=== PATIENT | male | born 1985 | race Hispanic/Latino ===

== ENCOUNTER 2018-12-08 15:51 | Emergency (ER) | payer OTHER ==
[2018-12-08 16:38] LABS: BASOPHILS % (AUTO) 0.7 % (0.0-5.0); EOSINOPHILS % (AUTO) 2.2 % (0.0-8.0); HEMATOCRIT 48.3 % (42-54); LYMPHOCYTES % (AUTO) 21.9 % (21.0-51.0); MEAN CORPUSCULAR HEMOGLOBIN 32.2 pg (27.0-33.0); MEAN CORPUSCULAR HGB CONC 33.5 g/dL (32.0-36.0); MEAN CORPUSCULAR VOLUME 96.2 fL (79-99); MONOCYTES % (AUTO) 7.3 % (3.0-13.0); NEUTROPHILS % (AUTO) 67.9 % (40.0-77.0); PLATELET COUNT (AUTO) 229 K/uL (130-400); RED BLOOD CELL COUNT(AUTO) 5.02 MIL/uL (4.50-6.20); RED CELL DISTRIBUTION WIDTH 12.5 % (11.0-15.5); WHITE BLOOD COUNT (AUTO) 7.7 K/uL (4.8-10.8)
[2018-12-08 16:48] LABS: CARBON DIOXIDE 31 mmol/L (21-32); CHLORIDE 103 mmol/L (101-111); CREATININE 0.8 mg/dL (0.5-1.5); GLOMERULAR FILTR. RATE CALC 117 mL/min (>60); GLUCOSE,RANDOM 97 mg/dL (70-105); POTASSIUM 4.2 mmol/L (3.5-5.1); SODIUM SERUM 137 mmol/L (136-145); UREA NITROGEN, BLOOD 10 mg/dL (7-18)
[2018-12-08 16:55] LABS: ALANINE AMINOTRANSFERASE 91 U/L (12-78); ALBUMIN 3.5 g/dL (3.5-5.0); ASPARTATE AMINOTRANSFERASE 48 U/L (10-37); BILIRUBIN,DIRECT 0.1 mg/dL (0.0-0.3); BILIRUBIN,TOTAL 0.5 mg/dL (0.2-1.0); CREATINE KINASE, TOTAL 193 U/L (21-232); TOTAL PROTEIN, SERUM 7.4 g/dL (6.0-8.3)
[2018-12-08 17:16] LABS: ACETAMINOPHEN < 1 mcg/mL (10-29); SALICYLATE < 2.8 mg/dL (2.8-20.0)
[2018-12-08 17:23] LABS: AMPHET/METH SCREEN,URINE POSITIVE (NEGATIVE); BARBITURATE SCREEN, URINE NEGATIVE (NEGATIVE); BENZODIAZEPINES SCREEN,URINE POSITIVE (NEGATIVE); CANNABINOID SCREEN,URINE POSITIVE (NEGATIVE); COCAINE SCREEN,URINE NEGATIVE (NEGATIVE); OPIATE SCREEN,URINE NEGATIVE (NEGATIVE); PHENCYCLIDINE SCREEN,URINE NEGATIVE (NEGATIVE)
== END 2018-12-08 18:35 | disposition home or self-care (01) ==
LOC: EDH 15:51
DX: F19.10 Other psychoactive substance abuse, uncomplicated (principal); R41.82 Altered mental status, unspecified; F41.9 Anxiety disorder, unspecified; F12.10 Cannabis abuse, uncomplicated
CPT/HCPCS: 36415; 70450; 80048; 80076; 80305; 82550; 85025; 93005; 99284; G0480; G0481

== ENCOUNTER 2021-01-23 21:26 | Emergency (ER) | payer OTHER ==
[2021-01-23 22:03] LABS: BASOPHILS % (AUTO) 0.6 % (0.0-5.0); LYMPHOCYTES % (AUTO) 26.8 % (21.0-51.0); MEAN CORPUSCULAR HEMOGLOBIN 30.9 pg (27.0-33.0); MEAN CORPUSCULAR HGB CONC 31.1 g/dL (32.0-36.0); MEAN CORPUSCULAR VOLUME 99.3 fL (79-99); MONOCYTES % (AUTO) 8.1 % (3.0-13.0); NUCLEATED RED BLOOD CELLS 0.2 % (0.0-0.19); PLATELET COUNT (AUTO) 268 K/uL (130-400); RED BLOOD CELL COUNT(AUTO) 4.53 MIL/uL (4.50-6.20); RED CELL DISTRIBUTION WIDTH 13.4 % (11.0-15.5); WHITE BLOOD COUNT (AUTO) 12.7 K/uL (4.8-10.8)
[2021-01-23 22:16] LABS: INR 1.23 (0.85-1.15); PROTHROMBIN TIME 13.2 SEC (9.6-11.6)
[2021-01-23 22:17] LABS: CREATININE 1.2 mg/dL (0.5-1.5); PARTIAL THROMBOPLASTIN TIME 24.6 SEC (26.3-35.5); POTASSIUM 3.5 mmol/L (3.5-5.1)
[2021-01-23 22:29] LABS: ALBUMIN 3.3 g/dL (3.5-5.0); BILIRUBIN,TOTAL 0.8 mg/dL (0.2-1.0)
[2021-01-23 22:31] LABS: ABG BASE EXCESS -0.1 mmol/L (-2.0-3.0); ABG HCO3 24.6 mmol/L (21.0-28.0); ABG OXYGEN SATURATION 94.7 % (95.0-99.0); ABG PCO2 40 mmHg (35-48)
[2021-01-23] MEDS ORDERED: ALBUTEROL SULFATE 0.083% 2.5 MG/3 ML INH IH ONE (22:35)
[2021-01-23] MEDS ORDERED: IOHEXOL 350 MG/ML 100ML INFUS..BTL IV ONE (23:22)
[2021-01-23] MEDS ORDERED: FUROSEMIDE 10 MG/ML 4ML VIAL ONE (23:56)
[2021-01-24 00:16] LABS: APPEARANCE,URINE Clear (CLEAR); BILIRUBIN,URINE Negative (NEGATIVE); COLOR,URINE Dark Yellow (YELLOW); GLUCOSE, URINE (UA) Negative (NEGATIVE); KETONES,URINE Negative (NEGATIVE); LEUKOCYTE ESTERASE ,URINE Negative (NEGATIVE); NITRATE,URINE Negative (NEGATIVE); OCCULT BLOOD,URINE Negative (NEGATIVE); PROTEIN,URINE POS 2+ mg/dL (NEGATIVE)
[2021-01-24 01:00] LABS: AMPHET/METH SCREEN,URINE POSITIVE (NEGATIVE); BARBITURATE SCREEN, URINE NEGATIVE (NEGATIVE); BENZODIAZEPINES SCREEN,URINE POSITIVE (NEGATIVE); CANNABINOID SCREEN,URINE POSITIVE (NEGATIVE); COCAINE SCREEN,URINE NEGATIVE (NEGATIVE); OPIATE SCREEN,URINE NEGATIVE (NEGATIVE); PHENCYCLIDINE SCREEN,URINE NEGATIVE (NEGATIVE)
[2021-01-24] MEDS ORDERED: CEFTRIAXONE SODIUM 1 GM ONE (02:19)
[2021-01-24] MEDS ORDERED: AZITHROMYCIN 250 MG TABLET PO ONE (02:19)
== END 2021-01-24 02:29 | disposition left against medical advice (07) ==
LOC: EDH 21:26
DX: J18.9 Pneumonia, unspecified organism (principal); R09.02 Hypoxemia; R60.0 Localized edema; R06.00 Dyspnea, unspecified; R00.0 Tachycardia, unspecified; Z20.822 Contact with and (suspected) exposure to COVID-19; F41.9 Anxiety disorder, unspecified; Z72.0 Tobacco use
CPT/HCPCS: 36415; 36600; 71045; 71275; 80053; 80305; 81003; 82803; 83605; 83880; 84484; 85025; 85378; 85610; 85730; 87040 ×2; 87426; 87804 ×2; 93005; 94640; 96374; 96375; 99285; J0696; J1940; Q9967; U0003

== ENCOUNTER 2021-01-28 00:43 | Inpatient (IN) | payer SELFPAY ==
[2021-01-28 01:40] LABS: BASOPHILS % (AUTO) 0.6 % (0.0-5.0); EOSINOPHILS % (AUTO) 0.8 % (0.0-8.0); HEMATOCRIT 45.2 % (42-54); LYMPHOCYTES % (AUTO) 25.4 % (21.0-51.0); MEAN CORPUSCULAR HEMOGLOBIN 31.9 pg (27.0-33.0); MEAN CORPUSCULAR HGB CONC 32.3 g/dL (32.0-36.0); MEAN CORPUSCULAR VOLUME 98.9 fL (79-99); MONOCYTES % (AUTO) 6.1 % (3.0-13.0); NEUTROPHILS % (AUTO) 66.5 % (40.0-77.0); PLATELET COUNT (AUTO) 281 K/uL (130-400); RED BLOOD CELL COUNT(AUTO) 4.57 MIL/uL (4.50-6.20); RED CELL DISTRIBUTION WIDTH 13.8 % (11.0-15.5); WHITE BLOOD COUNT (AUTO) 13.1 K/uL (4.8-10.8)
[2021-01-28 01:45] LABS: CREATININE 1.3 mg/dL (0.5-1.5); INR 1.21 (0.85-1.15); POTASSIUM 3.8 mmol/L (3.5-5.1)
[2021-01-28 01:47] LABS: PARTIAL THROMBOPLASTIN TIME 25.4 SEC (26.3-35.5)
[2021-01-28 01:49] LABS: ALBUMIN 3.2 g/dL (3.5-5.0); BILIRUBIN,TOTAL 1.1 mg/dL (0.2-1.0); TOTAL PROTEIN, SERUM 6.9 g/dL (6.0-8.3)
[2021-01-28 01:56] LABS: B-TYPE NATRIURETIC PEPTIDE 453 pg/mL (0-100)
[2021-01-28 01:59] LABS: ABG BASE EXCESS -0.1 mmol/L (-2.0-3.0); ABG HCO3 24.9 mmol/L (21.0-28.0); ABG OXYGEN SATURATION 90.5 % (95.0-99.0); ABG PCO2 42 mmHg (35-48)
[2021-01-28 02:10] LABS: APPEARANCE,URINE Clear (CLEAR); BILIRUBIN,URINE Small (NEGATIVE); COLOR,URINE Dark Yellow (YELLOW); GLUCOSE, URINE (UA) Negative (NEGATIVE); KETONES,URINE Negative (NEGATIVE); LEUKOCYTE ESTERASE ,URINE Negative (NEGATIVE); NITRATE,URINE Negative (NEGATIVE); OCCULT BLOOD,URINE Negative (NEGATIVE); PROTEIN,URINE POS 2+ mg/dL (NEGATIVE)
[2021-01-28 02:17] LABS: AMPHET/METH SCREEN,URINE POSITIVE (NEGATIVE); BARBITURATE SCREEN, URINE NEGATIVE (NEGATIVE); BENZODIAZEPINES SCREEN,URINE POSITIVE (NEGATIVE); CANNABINOID SCREEN,URINE POSITIVE (NEGATIVE); COCAINE SCREEN,URINE POSITIVE (NEGATIVE); OPIATE SCREEN,URINE NEGATIVE (NEGATIVE); PHENCYCLIDINE SCREEN,URINE NEGATIVE (NEGATIVE)
[2021-01-28] MEDS ORDERED: FUROSEMIDE 10 MG/ML 4ML VIAL ONE (02:27)
[2021-01-28 02:37] LABS: BACTERIA,URINE Few /HPF (None Seen); MUCUS,URINE Moderate LPF (None Seen); RBC,URINE 0-1 /HPF (0-1)
[2021-01-28 04:08] LABS: HEMOGLOBIN A1C 6.3 % (4.0-6.0)
[2021-01-28] MEDS ORDERED: METOPROLOL TARTRATE 1 MG/ML 5ML VIAL IV ONE (05:36)
[2021-01-28 05:39] LABS: BASOPHILS % (AUTO) 0.6 % (0.0-5.0); EOSINOPHILS % (AUTO) 0.8 % (0.0-8.0); HEMATOCRIT 44.2 % (42-54); LYMPHOCYTES % (AUTO) 26.6 % (21.0-51.0); MEAN CORPUSCULAR VOLUME 96.9 fL (79-99); MONOCYTES % (AUTO) 6.6 % (3.0-13.0); NEUTROPHILS % (AUTO) 64.8 % (40.0-77.0); PLATELET COUNT (AUTO) 279 K/uL (130-400); RED BLOOD CELL COUNT(AUTO) 4.56 MIL/uL (4.50-6.20); RED CELL DISTRIBUTION WIDTH 13.6 % (11.0-15.5); WHITE BLOOD COUNT (AUTO) 12.1 K/uL (4.8-10.8)
[2021-01-28 05:52] LABS: INR 1.21 (0.85-1.15)
[2021-01-28 05:54] LABS: PARTIAL THROMBOPLASTIN TIME 25.3 SEC (26.3-35.5)
[2021-01-28 06:06] LABS: ALBUMIN 3.3 g/dL (3.5-5.0); BILIRUBIN,TOTAL 1.1 mg/dL (0.2-1.0); CREATININE 1.2 mg/dL (0.5-1.5); POTASSIUM 3.3 mmol/L (3.5-5.1)
[2021-01-28] MEDS ORDERED: CEFTRIAXONE SODIUM 1 GM IVP SCH (07:00)
[2021-01-28] MEDS ORDERED: FUROSEMIDE 10 MG/ML 4ML VIAL IVP SCH (09:00)
[2021-01-28] MEDS ORDERED: FAMOTIDINE/PF 20 MG/2 ML VIAL IV SCH (09:00)
[2021-01-28] MEDS ORDERED: ENOXAPARIN SODIUM 40 MG/0.4 ML SYRINGE SQ SCH (09:00)
== END 2021-01-28 09:31 | disposition left against medical advice (07) | DRG 204 ==
LOC: EDH 00:43 → EDHIP 00:44
PROVIDERS: ADMIT Internal Medicine; ATTEND Internal Medicine
DX: R06.00 Dyspnea, unspecified (principal); F41.9 Anxiety disorder, unspecified; Z53.29 Procedure and treatment not carried out because of patient's decision for other reasons; I50.9 Heart failure, unspecified; F17.200 Nicotine dependence, unspecified, uncomplicated; F12.10 Cannabis abuse, uncomplicated; F14.10 Cocaine abuse, uncomplicated; F15.10 Other stimulant abuse, uncomplicated
CPT/HCPCS: 36415; 36600; 71045; 80053; 80305; 81001; 82550; 82803; 83036; 83605; 83690; 83880; 84145; 84484; 85025; 85610; 85730; 87040; 93005; G0378; J1940; J3490

== ENCOUNTER 2021-02-01 13:10 | Inpatient (IN) | payer OTHER ==
[~2021-02-01] VITALS: Ht 167.6 cm; Wt 182.9 kg
[2021-02-01 14:07] LABS: BASOPHILS % (AUTO) 0.6 % (0.0-5.0); LYMPHOCYTES % (AUTO) 25.9 % (21.0-51.0); MEAN CORPUSCULAR HGB CONC 31.5 g/dL (32.0-36.0); MEAN CORPUSCULAR VOLUME 98.5 fL (79-99); MONOCYTES % (AUTO) 7.4 % (3.0-13.0); NEUTROPHILS % (AUTO) 64.6 % (40.0-77.0); PLATELET COUNT (AUTO) 301 K/uL (130-400); RED BLOOD CELL COUNT(AUTO) 4.77 MIL/uL (4.50-6.20); RED CELL DISTRIBUTION WIDTH 13.7 % (11.0-15.5); WHITE BLOOD COUNT (AUTO) 11.8 K/uL (4.8-10.8)
[2021-02-01 14:21] LABS: INR 1.32 (0.85-1.15)
[2021-02-01] MEDS ORDERED: SODIUM CHLORIDE 0.9% 50 ML IV ONE (14:21)
[2021-02-01] MEDS ORDERED: FUROSEMIDE 10 MG/ML 4ML VIAL ONE ×2 (14:21→21:49)
[2021-02-01] MEDS ORDERED: ASPIRIN 325 MG TABLET ONE (14:21)
[2021-02-01] MEDS ORDERED: CEFTRIAXONE SODIUM 1 GM ONE (14:21)
[2021-02-01 14:23] LABS: PARTIAL THROMBOPLASTIN TIME 25.6 SEC (26.3-35.5)
[2021-02-01 14:30] LABS: ALBUMIN 3.2 g/dL (3.5-5.0); BILIRUBIN,TOTAL 1.1 mg/dL (0.2-1.0); CREATININE 1.2 mg/dL (0.5-1.5); POTASSIUM 3.9 mmol/L (3.5-5.1); TOTAL PROTEIN, SERUM 6.8 g/dL (6.0-8.3)
[2021-02-01 14:39] LABS: B-TYPE NATRIURETIC PEPTIDE 636 pg/mL (0-100)
[2021-02-01 16:52] LABS: APPEARANCE,URINE Clear (CLEAR); BILIRUBIN,URINE Small (NEGATIVE); COLOR,URINE Dark Yellow (YELLOW); GLUCOSE, URINE (UA) Negative (NEGATIVE); KETONES,URINE Negative (NEGATIVE); LEUKOCYTE ESTERASE ,URINE Negative (NEGATIVE); NITRATE,URINE Negative (NEGATIVE); OCCULT BLOOD,URINE Negative (NEGATIVE); PROTEIN,URINE POS 2+ mg/dL (NEGATIVE)
[2021-02-01 17:02] LABS: BACTERIA,URINE Rare /HPF (None Seen); COARSE GRANULAR CASTS,URINE 0-2 /LPF (None Seen); MUCUS,URINE Rare LPF (None Seen); RBC,URINE 0-1 /HPF (0-1); SQUAMOUS EPITHELIAL CELL,UR Rare /HPF (0-2); WBC,URINE 0-1 /HPF (0-1)
[2021-02-01 17:09] LABS: AMPHET/METH SCREEN,URINE POSITIVE (NEGATIVE); BARBITURATE SCREEN, URINE NEGATIVE (NEGATIVE); BENZODIAZEPINES SCREEN,URINE POSITIVE (NEGATIVE); CANNABINOID SCREEN,URINE POSITIVE (NEGATIVE); COCAINE SCREEN,URINE NEGATIVE (NEGATIVE); OPIATE SCREEN,URINE NEGATIVE (NEGATIVE); PHENCYCLIDINE SCREEN,URINE NEGATIVE (NEGATIVE)
[2021-02-01 17:10] LABS: ABG BASE EXCESS 1.7 mmol/L (-2.0-3.0); ABG HCO3 27.4 mmol/L (21.0-28.0); ABG OXYGEN SATURATION 93.1 % (95.0-99.0); ABG PCO2 47 mmHg (35-48)
[2021-02-01] MEDS: FUROSEMIDE 10 MG/ML 4ML VIAL IV SCH (18:00)
[2021-02-01 22:40] VITALS: BP 138/77
[2021-02-01 23:27] VITALS: BP 144/99
[2021-02-02] MEDS ORDERED: CHLORDIAZEPOXIDE HCL 25 MG CAP PO PRN (02:30)
[2021-02-02] MEDS ORDERED: PHARMACY COMMUNICATION MISC PRN (02:30)
[2021-02-02] MEDS ORDERED: LORAZEPAM 2 MG/ML 1 ML VIAL IVP PRN ×2 (02:30→10:30)
[2021-02-02 03:31] VITALS: BP 140/119
[2021-02-02] MEDS ORDERED: ONDANSETRON HCL 4 MG/2 ML VIAL ONE (04:19)
[2021-02-02] MEDS: FUROSEMIDE 10 MG/ML 4ML VIAL IV SCH ×3 (04:25→17:19)
[2021-02-02] MEDS ORDERED: ONDANSETRON HCL 4 MG/2 ML VIAL IVP PRN (05:45)
[2021-02-02 05:58] LABS: BASOPHILS % (AUTO) 0.6 % (0.0-5.0); EOSINOPHILS % (AUTO) 1.3 % (0.0-8.0); HEMATOCRIT 46.9 % (42-54); LYMPHOCYTES % (AUTO) 25.8 % (21.0-51.0); MEAN CORPUSCULAR HEMOGLOBIN 31.2 pg (27.0-33.0); MEAN CORPUSCULAR HGB CONC 31.1 g/dL (32.0-36.0); MEAN CORPUSCULAR VOLUME 100.2 fL (79-99); MONOCYTES % (AUTO) 6.6 % (3.0-13.0); NEUTROPHILS % (AUTO) 65.4 % (40.0-77.0); NUCLEATED RED BLOOD CELLS 0.2 % (0.0-0.19); PLATELET COUNT (AUTO) 172 K/uL (130-400); RED BLOOD CELL COUNT(AUTO) 4.68 MIL/uL (4.50-6.20); RED CELL DISTRIBUTION WIDTH 13.9 % (11.0-15.5); WHITE BLOOD COUNT (AUTO) 11.9 K/uL (4.8-10.8)
[2021-02-02 06:20] LABS: B-TYPE NATRIURETIC PEPTIDE 378 pg/mL (0-100)
[2021-02-02 07:50] LABS: CREATININE 1.3 mg/dL (0.5-1.5); MAGNESIUM 1.8 mg/dL (1.80-2.40); POTASSIUM 3.5 mmol/L (3.5-5.1)
[2021-02-02 07:53] VITALS: BP 150/98
[2021-02-02] MEDS ORDERED: POTASSIUM CHLORIDE 20MEQ/100ML 100 ML IV PRN (08:15)
[2021-02-02] MEDS ORDERED: MAGNESIUM 2GM PREMIX 50ML 50 ML IV PRN (08:15)
[2021-02-02] MEDS ORDERED: POTASSIUM CHLORIDE 10% ELIXIR 20 MEQ/15 ML UDCUP PO PRN (08:15)
[2021-02-02] MEDS: POTASSIUM CHLORIDE 20 MEQ ERTAB PO PRN ×2 (09:59→16:54)
[2021-02-02 11:13] VITALS: BP 158/105
[2021-02-02] MEDS ORDERED: HYDRALAZINE HCL 20 MG/ML VIAL IV PRN (11:30)
[2021-02-02] MEDS ORDERED: METOPROLOL TARTRATE 25 MG TAB PO SCH (13:00)
[2021-02-02 16:00] VITALS: BP 100/68
[2021-02-02 19:51] VITALS: BP 150/86
[2021-02-02] MEDS: DOCUSATE SODIUM 100 MG CAP PO SCH (20:49)
[2021-02-02] MEDS ORDERED: CARVEDILOL 3.125 MG TABLET PO SCH (21:00)
[2021-02-02 23:43] VITALS: BP 120/85
[2021-02-03] MEDS: FUROSEMIDE 10 MG/ML 4ML VIAL IV SCH ×2 (01:48→09:08)
[2021-02-03 03:50] VITALS: BP 116/77
[2021-02-03 07:00] VITALS: BP 93/67
[2021-02-03 07:07] LABS: BASOPHILS % (AUTO) 0.7 % (0.0-5.0); EOSINOPHILS % (AUTO) 1.1 % (0.0-8.0); HEMATOCRIT 44.7 % (42-54); LYMPHOCYTES % (AUTO) 23.8 % (21.0-51.0); MEAN CORPUSCULAR HEMOGLOBIN 31.7 pg (27.0-33.0); MEAN CORPUSCULAR HGB CONC 31.3 g/dL (32.0-36.0); MEAN CORPUSCULAR VOLUME 101.4 fL (79-99); MONOCYTES % (AUTO) 8.2 % (3.0-13.0); NEUTROPHILS % (AUTO) 65.8 % (40.0-77.0); PLATELET COUNT (AUTO) 294 K/uL (130-400); RED BLOOD CELL COUNT(AUTO) 4.41 MIL/uL (4.50-6.20); RED CELL DISTRIBUTION WIDTH 13.6 % (11.0-15.5); WHITE BLOOD COUNT (AUTO) 12.8 K/uL (4.8-10.8)
[2021-02-03 07:14] LABS: CREATININE 1.4 mg/dL (0.5-1.5); MAGNESIUM 1.8 mg/dL (1.80-2.40); POTASSIUM 4.2 mmol/L (3.5-5.1)
[2021-02-03] MEDS: DOCUSATE SODIUM 100 MG CAP PO SCH (08:50)
[2021-02-03] MEDS ORDERED: THIAMINE HCL 100 MG TABLET PO SCH (09:00)
[2021-02-03] MEDS ORDERED: FOLIC ACID 1 MG TABLET PO SCH (09:00)
[2021-02-03] MEDS ORDERED: SENNOSIDES 8.6 MG TABLET PO SCH (09:00)
[2021-02-03] MEDS ORDERED: MULTIVITAMIN TABLET PO SCH (09:00)
[2021-02-03 11:00] VITALS: BP 158/94
[2021-02-03] MEDS ORDERED: BUSPIRONE HCL 5 MG TABLET PO SCH (21:00)
[2021-02-03] MEDS ORDERED: AcetaZOLAMIDE 250 MG TAB PO SCH (21:00)
== END 2021-02-03 14:10 | disposition left against medical advice (07) | DRG 291 ==
LOC: EDH 13:10 → EDHIP 13:11 → UNDOADMIN 15:27 → EDHIP 15:27 → 4DH 22:26
PROVIDERS: ADMIT Internal Medicine; ATTEND Internal Medicine
PROC: 5A09357 Assistance with Respiratory Ventilation, Less than 24 Consecutive Hours, Continuous Positive Airway Pressure (ICD-10-PCS; principal; 2021-02-01)
DX: I13.0 Hypertensive heart and chronic kidney disease with heart failure and stage 1 through stage 4 chronic kidney disease, or unspecified chronic kidney disease (principal); J96.01 Acute respiratory failure with hypoxia; E87.2 Acidosis; D68.9 Coagulation defect, unspecified; E66.2 Morbid (severe) obesity with alveolar hypoventilation; N17.9 Acute kidney failure, unspecified; Z68.43 Body mass index [BMI] 50.0-59.9, adult; I50.9 Heart failure, unspecified; E87.6 Hypokalemia; E88.09 Other disorders of plasma-protein metabolism, not elsewhere classified; I27.81 Cor pulmonale (chronic); F12.10 Cannabis abuse, uncomplicated; F14.10 Cocaine abuse, uncomplicated; Z20.822 Contact with and (suspected) exposure to COVID-19; D72.829 Elevated white blood cell count, unspecified; R00.0 Tachycardia, unspecified; F10.20 Alcohol dependence, uncomplicated; Y90.9 Presence of alcohol in blood, level not specified; E11.22 Type 2 diabetes mellitus with diabetic chronic kidney disease; N18.2 Chronic kidney disease, stage 2 (mild); Z91.19 Patient's noncompliance with other medical treatment and regimen; Z53.29 Procedure and treatment not carried out because of patient's decision for other reasons
CPT/HCPCS: 36415; 36600; 71045; 76705; 80048; 80053; 80305; 81001; 82435; 82550; 82803; 82947; 83605; 83735; 83880; 84132; 84145; 84295; 84484; 85018; 85025; 85610; 85730; 87040; 87426; 87804; 93005; 93306; 93356; 94660; G0378; J0696; J1940; J2060; J2405; U0003

== ENCOUNTER 2021-02-12 00:13 | Inpatient (IN) | payer OTHER ==
[~2021-02-12] VITALS: Ht 167.6 cm; Wt 186.0 kg
[2021-02-12] VITALS (8 sets, daily range): BP systolic 102–144; BP diastolic 56–110
[2021-02-12] MEDS ORDERED: FUROSEMIDE 40MG VIAL (10MG/ML) IV SCH (02:15)
[2021-02-12 02:18] LABS: BASOPHILS % (AUTO) 0.7 % (0.0-5.0); EOSINOPHILS % (AUTO) 1.3 % (0.0-8.0); HEMATOCRIT 46.1 % (42-54); LYMPHOCYTES % (AUTO) 21.2 % (21.0-51.0); MEAN CORPUSCULAR HEMOGLOBIN 31.6 pg (27.0-33.0); MEAN CORPUSCULAR HGB CONC 31.7 g/dL (32.0-36.0); MEAN CORPUSCULAR VOLUME 99.8 fL (79-99); MONOCYTES % (AUTO) 9.6 % (3.0-13.0); NEUTROPHILS % (AUTO) 66.8 % (40.0-77.0); NUCLEATED RED BLOOD CELLS 0.2 % (0.0-0.19); PLATELET COUNT (AUTO) 283 K/uL (130-400); RED BLOOD CELL COUNT(AUTO) 4.62 MIL/uL (4.50-6.20); RED CELL DISTRIBUTION WIDTH 13.7 % (11.0-15.5); WHITE BLOOD COUNT (AUTO) 9.9 K/uL (4.8-10.8)
[2021-02-12 02:20] LABS: CARBON DIOXIDE 29 mmol/L (21-32); CHLORIDE 100 mmol/L (101-111); CREATININE 1.6 mg/dL (0.5-1.5); GLOMERULAR FILTR. RATE CALC 52 mL/min (>60); GLUCOSE,RANDOM 125 mg/dL (70-105); POTASSIUM 4.9 mmol/L (3.5-5.1); SODIUM SERUM 139 mmol/L (136-145); UREA NITROGEN, BLOOD 31 mg/dL (7-18)
[2021-02-12 02:32] LABS: ALANINE AMINOTRANSFERASE 121 U/L (12-78); ALBUMIN 3.1 g/dL (3.5-5.0); ASPARTATE AMINOTRANSFERASE 136 U/L (10-37); CREATINE KINASE, TOTAL 268 U/L (21-232); MYOGLOBIN 122 ng/mL (10-92); TOTAL PROTEIN, SERUM 6.8 g/dL (6.0-8.3); TROPONIN I < 0.04 ng/mL (0.00-0.06)
[2021-02-12 02:34] LABS: B-TYPE NATRIURETIC PEPTIDE 502 pg/mL (0-100)
[2021-02-12 05:47] LABS: ABG BASE EXCESS -0.2 mmol/L (-2.0-3.0); ABG HCO3 24.9 mmol/L (21.0-28.0); ABG OXYGEN SATURATION 97.4 % (95.0-99.0); ABG PCO2 42 mmHg (35-48)
[2021-02-12] MEDS ORDERED: LACTULOSE 20 GM/30 ML UDCUP PO PRN (06:45)
[2021-02-12] MEDS ORDERED: ACETAMINOPHEN 325 MG TAB PO PRN ×2 (06:45)
[2021-02-12] MEDS ORDERED: ONDANSETRON HCL 4 MG/2 ML VIAL IV PRN (06:45)
[2021-02-12] MEDS: HEPARIN SODIUM 5000UNIT/ML 1ML VIAL SQ SCH ×2 (07:30→19:30)
[2021-02-12] MEDS: INSULIN HUMULIN R 100 UNIT/ML 3ML SQ SCH ×4 (07:30→21:00)
[2021-02-12] MEDS ORDERED: FUROSEMIDE 40MG VIAL (10MG/ML) IVP SCH (09:00)
[2021-02-12] MEDS: FAMOTIDINE 20MG TAB 20 MG TAB PO SCH (09:17)
[2021-02-12 15:15] LABS: CREATININE 1.4 mg/dL (0.5-1.5); POTASSIUM 3.2 mmol/L (3.5-5.1)
[2021-02-12] MEDS ORDERED: POTASSIUM CHLORIDE 20MEQ/100ML 100 ML IV PRN (17:00)
[2021-02-12] MEDS ORDERED: POTASSIUM CHLORIDE 10% ELIXIR 20 MEQ/15 ML UDCUP PO PRN (17:00)
[2021-02-12] MEDS: FUROSEMIDE 40MG VIAL (10MG/ML) IVP SCH (22:21)
[2021-02-13] VITALS (7 sets, daily range): BP systolic 110–144; BP diastolic 72–98
[2021-02-13] MEDS: KCL 20 MEQ ERTAB PO PRN ×4 (03:07→16:15)
[2021-02-13 05:55] LABS: BASOPHILS % (AUTO) 0.7 % (0.0-5.0); EOSINOPHILS % (AUTO) 2.5 % (0.0-8.0); HEMATOCRIT 47.2 % (42-54); LYMPHOCYTES % (AUTO) 18.7 % (21.0-51.0); MEAN CORPUSCULAR HEMOGLOBIN 31.4 pg (27.0-33.0); MEAN CORPUSCULAR HGB CONC 31.1 g/dL (32.0-36.0); MEAN CORPUSCULAR VOLUME 100.9 fL (79-99); MONOCYTES % (AUTO) 9.5 % (3.0-13.0); NEUTROPHILS % (AUTO) 68.3 % (40.0-77.0); PLATELET COUNT (AUTO) 256 K/uL (130-400); RED BLOOD CELL COUNT(AUTO) 4.68 MIL/uL (4.50-6.20); RED CELL DISTRIBUTION WIDTH 13.5 % (11.0-15.5); WHITE BLOOD COUNT (AUTO) 9.7 K/uL (4.8-10.8)
[2021-02-13 06:19] LABS: CREATININE 1.5 mg/dL (0.5-1.5); POTASSIUM 3.5 mmol/L (3.5-5.1)
[2021-02-13 06:26] LABS: B-TYPE NATRIURETIC PEPTIDE 465 pg/mL (0-100)
[2021-02-13] MEDS: HEPARIN SODIUM 5000UNIT/ML 1ML VIAL SQ SCH (06:49)
[2021-02-13] MEDS: INSULIN HUMULIN R 100 UNIT/ML 3ML SQ SCH ×4 (06:49→20:25)
[2021-02-13 07:05] LABS: AMPHET/METH SCREEN,URINE POSITIVE (NEGATIVE); BARBITURATE SCREEN, URINE NEGATIVE (NEGATIVE); BENZODIAZEPINES SCREEN,URINE POSITIVE (NEGATIVE); CANNABINOID SCREEN,URINE POSITIVE (NEGATIVE); COCAINE SCREEN,URINE NEGATIVE (NEGATIVE); OPIATE SCREEN,URINE NEGATIVE (NEGATIVE); PHENCYCLIDINE SCREEN,URINE NEGATIVE (NEGATIVE)
[2021-02-13] MEDS: FUROSEMIDE 40MG VIAL (10MG/ML) IVP SCH ×2 (08:20→16:12)
[2021-02-13] MEDS: FAMOTIDINE 20MG TAB 20 MG TAB PO SCH (08:20)
[2021-02-13] MEDS ORDERED: LORAZEPAM 2 MG/ML 1 ML VIAL IVP PRN ×2 (10:30)
[2021-02-13] MEDS ORDERED: PHARMACY COMMUNICATION MISC PRN (10:30)
[2021-02-13] MEDS ORDERED: CHLORDIAZEPOXIDE HCL 25 MG CAP PO PRN ×2 (10:30)
[2021-02-13] MEDS ORDERED: KETOROLAC 15MG/ML VIAL (15MG/ML) IV SCH (11:15)
[2021-02-13] MEDS: HYDRALAZINE HCL 10 MG TABLET PO SCH ×2 (11:33→20:23)
[2021-02-13] MEDS: THIAMINE HCL 100 MG TABLET PO SCH ×2 (11:33→22:17)
[2021-02-13] MEDS: ISOSORBIDE DINITRATE 10 MG TABLET PO SCH ×2 (11:34→20:23)
[2021-02-13 11:37] LABS: MAGNESIUM 1.7 mg/dL (1.80-2.40)
[2021-02-13] MEDS: MAGNESIUM OXIDE 400 MG TABLET PO SCH (13:53)
[2021-02-13] MEDS: LISINOPRIL 5 MG TABLET PO SCH (14:44)
[2021-02-13] MEDS ORDERED: BACITRACIN 28.4 GM OINT TP SCH (21:00)
[2021-02-13] MEDS ORDERED: CARVEDILOL 3.125 MG TABLET PO SCH (21:00)
[2021-02-13] MEDS ORDERED: ALPRAZOLAM 1 MG TAB PO SCH (21:00)
[2021-02-14] MEDS: FUROSEMIDE 40MG VIAL (10MG/ML) IVP SCH ×2 (00:47→08:50)
[2021-02-14 03:27] VITALS: BP 126/81
[2021-02-14] MEDS: ISOSORBIDE DINITRATE 10 MG TABLET PO SCH (03:47)
[2021-02-14] MEDS: HYDRALAZINE HCL 10 MG TABLET PO SCH ×2 (03:47→10:30)
[2021-02-14 05:22] LABS: BASOPHILS % (AUTO) 0.9 % (0.0-5.0); EOSINOPHILS % (AUTO) 2.6 % (0.0-8.0); HEMATOCRIT 42.6 % (42-54); LYMPHOCYTES % (AUTO) 22.5 % (21.0-51.0); MEAN CORPUSCULAR HEMOGLOBIN 30.7 pg (27.0-33.0); MEAN CORPUSCULAR HGB CONC 30.5 g/dL (32.0-36.0); MEAN CORPUSCULAR VOLUME 100.7 fL (79-99); MONOCYTES % (AUTO) 8.6 % (3.0-13.0); NEUTROPHILS % (AUTO) 65.1 % (40.0-77.0); PLATELET COUNT (AUTO) 228 K/uL (130-400); RED BLOOD CELL COUNT(AUTO) 4.23 MIL/uL (4.50-6.20); RED CELL DISTRIBUTION WIDTH 13.3 % (11.0-15.5); WHITE BLOOD COUNT (AUTO) 9.2 K/uL (4.8-10.8)
[2021-02-14 05:30] LABS: CREATININE 1.3 mg/dL (0.5-1.5); POTASSIUM 3.4 mmol/L (3.5-5.1)
[2021-02-14 06:07] LABS: B-TYPE NATRIURETIC PEPTIDE 274 pg/mL (0-100)
[2021-02-14] MEDS: INSULIN HUMULIN R 100 UNIT/ML 3ML SQ SCH ×2 (06:53→11:30)
[2021-02-14 07:19] LABS: HEPATITIS Bs ANTIGEN SCREEN P Negative (Negative)
[2021-02-14 08:00] VITALS: BP 110/76
[2021-02-14] MEDS ORDERED: ALPRAZOLAM 0.5 MG TABLET PO SCH ×3 (08:07→08:30)
[2021-02-14] MEDS: FAMOTIDINE 20MG TAB 20 MG TAB PO SCH (08:46)
[2021-02-14] MEDS: LISINOPRIL 5 MG TABLET PO SCH (08:46)
[2021-02-14] MEDS: MAGNESIUM OXIDE 400 MG TABLET PO SCH (08:47)
[2021-02-14] MEDS ORDERED: MULTIVITAMIN TABLET PO SCH (09:00)
[2021-02-14] MEDS ORDERED: MAGNESIUM OXIDE 400 MG TABLET PO SCH (09:00)
[2021-02-14] MEDS ORDERED: METOLAZONE 2.5 MG TABLET PO SCH (09:00)
[2021-02-14] MEDS ORDERED: SPIRONOLACTONE 25 MG TAB PO SCH (09:00)
[2021-02-14] MEDS ORDERED: FOLIC ACID 1 MG TABLET PO SCH (09:00)
[2021-02-14] MEDS ORDERED: ENOXAPARIN SODIUM 40 MG/0.4 ML SYRINGE SQ SCH (09:00)
[2021-02-14] MEDS ORDERED: KCL 20 MEQ ERTAB PO SCH ×2 (09:00→11:00)
[2021-02-14] MEDS ORDERED: ISOSORBIDE DINITRATE 10 MG TABLET ONE (12:26)
[2021-02-14] MEDS: THIAMINE HCL 100 MG TABLET PO SCH (13:19)
[2021-02-14] MEDS ORDERED: FUROSEMIDE 80 MG TABLET PO SCH (21:00)
[2021-02-15] MEDS ORDERED: PANTOPRAZOLE SODIUM 40 MG TABLET.DR PO SCH (09:00)
[2021-02-15] MEDS ORDERED: LISINOPRIL 5 MG TABLET PO SCH (09:00)
== END 2021-02-14 15:45 | disposition left against medical advice (07) | DRG 291 ==
LOC: EDH 00:13 → OBSVTOIN 00:14 → EDHIP 00:14 → 3BH 02-13 08:38
PROVIDERS: ADMIT Internal Medicine; ATTEND Internal Medicine
PROC: 5A09357 Assistance with Respiratory Ventilation, Less than 24 Consecutive Hours, Continuous Positive Airway Pressure (ICD-10-PCS; principal; 2021-02-13)
DX: I13.0 Hypertensive heart and chronic kidney disease with heart failure and stage 1 through stage 4 chronic kidney disease, or unspecified chronic kidney disease (principal); I50.43 Acute on chronic combined systolic (congestive) and diastolic (congestive) heart failure; M62.82 Rhabdomyolysis; N17.9 Acute kidney failure, unspecified; Z68.44 Body mass index [BMI] 60.0-69.9, adult; F13.239 Sedative, hypnotic or anxiolytic dependence with withdrawal, unspecified; E66.01 Morbid (severe) obesity due to excess calories; F12.90 Cannabis use, unspecified, uncomplicated; F41.9 Anxiety disorder, unspecified; N18.30 Chronic kidney disease, stage 3 unspecified; E11.22 Type 2 diabetes mellitus with diabetic chronic kidney disease; G47.33 Obstructive sleep apnea (adult) (pediatric); F14.10 Cocaine abuse, uncomplicated; I42.7 Cardiomyopathy due to drug and external agent; F10.20 Alcohol dependence, uncomplicated; I42.6 Alcoholic cardiomyopathy; F15.90 Other stimulant use, unspecified, uncomplicated; F40.240 Claustrophobia; Z87.891 Personal history of nicotine dependence; Z79.899 Other long term (current) drug therapy; Z82.49 Family history of ischemic heart disease and other diseases of the circulatory system
CPT/HCPCS: 36415; 36600; 71045; 80048; 80053; 80305; 82550; 82607; 82746; 82803; 82948; 83735; 83874; 83880; 83921; 84255; 84425; 84484; 84630; 85025; 86706; 86804; 87340; 87522; 93005; 93970; 94660; G0378; J1650; J1885; J1940

== ENCOUNTER 2021-02-22 01:13 | Inpatient (IN) | payer OTHER ==
[~2021-02-22] VITALS: Ht 167.6 cm; Wt 186.4 kg
[2021-02-22] VITALS (13 sets, daily range): BP systolic 111–170; BP diastolic 73–117
[2021-02-22 01:49] LABS: HEMATOCRIT 45.9 % (42-54); MEAN CORPUSCULAR HEMOGLOBIN 31.2 pg (27.0-33.0); MEAN CORPUSCULAR HGB CONC 31.6 g/dL (32.0-36.0); MEAN CORPUSCULAR VOLUME 98.7 fL (79-99); RED BLOOD CELL COUNT(AUTO) 4.65 MIL/uL (4.50-6.20); RED CELL DISTRIBUTION WIDTH 13.4 % (11.0-15.5); WHITE BLOOD COUNT (AUTO) 10.8 K/uL (4.8-10.8)
[2021-02-22 01:59] LABS: CREATININE 1.3 mg/dL (0.5-1.5); POTASSIUM 3.5 mmol/L (3.5-5.1)
[2021-02-22 02:03] LABS: INR 1.31 (0.85-1.15); PROTHROMBIN TIME 13.9 SEC (9.6-11.6)
[2021-02-22 02:04] LABS: ALBUMIN 3.2 g/dL (3.5-5.0); BILIRUBIN,TOTAL 1.4 mg/dL (0.2-1.0); PARTIAL THROMBOPLASTIN TIME 25.1 SEC (26.3-35.5); TOTAL PROTEIN, SERUM 7.2 g/dL (6.0-8.3)
[2021-02-22] MEDS ORDERED: FUROSEMIDE 20MG VIAL ONE ×2 (02:21→02:32)
[2021-02-22] MEDS ORDERED: ASPIRIN 325 MG TABLET PO ONE (03:15)
[2021-02-22 03:26] LABS: ABG BASE EXCESS 3.7 mmol/L (-2.0-3.0); ABG HCO3 27.2 mmol/L (21.0-28.0); ABG OXYGEN SATURATION 99.8 % (95.0-99.0); ABG PCO2 37 mmHg (35-48)
[2021-02-22] MEDS ORDERED: MAG/ALUM/SIMETH 30 ML UDCUP PO PRN (04:15)
[2021-02-22] MEDS ORDERED: IPRATROPIUM/ALBUTEROL SULFATE 3 ML SOLUTION IH PRN (04:15)
[2021-02-22] MEDS ORDERED: GUAIFENESIN-DM 200/20 MG 10 ML PO PRN (04:15)
[2021-02-22] MEDS ORDERED: DIPHENHYDRAMINE HCL 25 MG CAPSULE PO PRN (04:15)
[2021-02-22] MEDS ORDERED: ONDANSETRON 4MG INJ IV PRN (04:15)
[2021-02-22] MEDS ORDERED: HYDRALAZINE 20MG/ML VIAL IV PRN (04:15)
[2021-02-22] MEDS ORDERED: NITROGLYCERIN 0.4 MG SL TAB SL PRN (04:15)
[2021-02-22] MEDS ORDERED: APAP-CODEINE 300/30MG TAB PO PRN ×2 (04:15)
[2021-02-22] MEDS ORDERED: DEXTROSE 50%-WATER 50 ML DISP.SYRIN IV PRN (04:30)
[2021-02-22] MEDS ORDERED: GLUCAGON 1MG KIT 1 MG ML IM PRN (04:30)
[2021-02-22 04:56] LABS: HEMOGLOBIN A1C 6.7 % (4.0-6.0)
[2021-02-22 05:38] LABS: APPEARANCE,URINE Clear (CLEAR); BILIRUBIN,URINE Small (NEGATIVE); COLOR,URINE Dark Yellow (YELLOW); GLUCOSE, URINE (UA) Negative (NEGATIVE); KETONES,URINE Negative (NEGATIVE); LEUKOCYTE ESTERASE ,URINE Negative (NEGATIVE); NITRATE,URINE Negative (NEGATIVE); OCCULT BLOOD,URINE Negative (NEGATIVE); PROTEIN,URINE POS 2+ mg/dL (NEGATIVE)
[2021-02-22 05:45] LABS: AMPHET/METH SCREEN,URINE NEGATIVE (NEGATIVE); BARBITURATE SCREEN, URINE NEGATIVE (NEGATIVE); BENZODIAZEPINES SCREEN,URINE POSITIVE (NEGATIVE); CANNABINOID SCREEN,URINE POSITIVE (NEGATIVE); COCAINE SCREEN,URINE NEGATIVE (NEGATIVE); OPIATE SCREEN,URINE NEGATIVE (NEGATIVE); PHENCYCLIDINE SCREEN,URINE NEGATIVE (NEGATIVE)
[2021-02-22 05:55] LABS: BACTERIA,URINE Rare /HPF (None Seen); RBC,URINE 0-1 /HPF (0-1); SQUAMOUS EPITHELIAL CELL,UR 0-2 /HPF (0-2); WBC,URINE 0-1 /HPF (0-1)
[2021-02-22] MEDS: INSULIN HUMULIN R 100 UNIT/ML 3ML SQ SCH ×4 (07:30→21:35)
[2021-02-22] MEDS ORDERED: FUROSEMIDE 40MG VIAL IVP SCH (09:00)
[2021-02-22] MEDS: FAMOTIDINE 20MG VIAL IV SCH ×2 (09:02→20:41)
[2021-02-22] MEDS: ENOXAPARIN SODIUM 40 MG/0.4 ML SYRINGE SQ SCH (09:05)
[2021-02-22] MEDS ORDERED: PHARMACY COMMUNICATION MISC SCH (13:15)
[2021-02-22] MEDS ORDERED: BUMETANIDE IV SCH (13:45)
[2021-02-22] MEDS: CARVEDILOL 3.125 MG TABLET PO SCH (20:42)
[2021-02-23] VITALS (8 sets, daily range): BP systolic 102–139; BP diastolic 57–93
[2021-02-23 06:52] LABS: BASOPHILS % (AUTO) 0.9 % (0.0-5.0); EOSINOPHILS % (AUTO) 1.2 % (0.0-8.0); LYMPHOCYTES % (AUTO) 20.6 % (21.0-51.0); MEAN CORPUSCULAR HEMOGLOBIN 31.1 pg (27.0-33.0); MEAN CORPUSCULAR HGB CONC 31.5 g/dL (32.0-36.0); MEAN CORPUSCULAR VOLUME 98.8 fL (79-99); MONOCYTES % (AUTO) 9.8 % (3.0-13.0); NEUTROPHILS % (AUTO) 67.3 % (40.0-77.0); PLATELET COUNT (AUTO) 253 K/uL (130-400); RED BLOOD CELL COUNT(AUTO) 4.15 MIL/uL (4.50-6.20); RED CELL DISTRIBUTION WIDTH 13.2 % (11.0-15.5)
[2021-02-23 07:02] LABS: CREATININE 1.1 mg/dL (0.5-1.5)
[2021-02-23 07:24] LABS: POTASSIUM 2.8 mmol/L (3.5-5.1)
[2021-02-23] MEDS: INSULIN HUMULIN R 100 UNIT/ML 3ML SQ SCH ×4 (07:30→21:00)
[2021-02-23 08:09] LABS: B-TYPE NATRIURETIC PEPTIDE 333 pg/mL (0-100)
[2021-02-23] MEDS ORDERED: POTASSIUM CHLORIDE 20MEQ/100ML 100 ML IV PRN ×2 (08:30→09:00)
[2021-02-23] MEDS ORDERED: LIDOCAINE HCL-MPF 1% 2ML VIAL IV PRN (09:00)
[2021-02-23] MEDS ORDERED: LISINOPRIL 2.5 MG TABLET PO SCH (09:00)
[2021-02-23] MEDS ORDERED: POTASSIUM CHLORIDE 10% ELIXIR 20 MEQ/15 ML UDCUP PO PRN (09:00)
[2021-02-23] MEDS ORDERED: KCL 20 MEQ ERTAB PO PRN (09:00)
[2021-02-23] MEDS ORDERED: ALPRAZOLAM 0.5 MG TABLET PO PRN (09:30)
[2021-02-23] MEDS ORDERED: FURO20TA6 PO (10:27)
[2021-02-23] MEDS: ENOXAPARIN SODIUM 40 MG/0.4 ML SYRINGE SQ SCH (11:12)
[2021-02-23] MEDS: CARVEDILOL 3.125 MG TABLET PO SCH ×2 (11:13→21:12)
[2021-02-23] MEDS: KCL 20 MEQ ERTAB PO PRN (18:43)
[2021-02-23] MEDS: BUSPIRONE HCL 5 MG TABLET PO SCH (21:12)
[2021-02-24 03:55] VITALS: BP 103/52
[2021-02-24 04:14] LABS: HEMATOCRIT 43.3 % (42-54); MEAN CORPUSCULAR HEMOGLOBIN 30.8 pg (27.0-33.0); MEAN CORPUSCULAR HGB CONC 31.2 g/dL (32.0-36.0); MEAN CORPUSCULAR VOLUME 98.6 fL (79-99); NUCLEATED RED BLOOD CELLS 0.2 % (0.0-0.19); RED BLOOD CELL COUNT(AUTO) 4.39 MIL/uL (4.50-6.20); RED CELL DISTRIBUTION WIDTH 13.2 % (11.0-15.5); WHITE BLOOD COUNT (AUTO) 9.1 K/uL (4.8-10.8)
[2021-02-24 04:26] LABS: CREATININE 1.3 mg/dL (0.5-1.5); POTASSIUM 3.2 mmol/L (3.5-5.1)
[2021-02-24] MEDS: LACTULOSE 20 GM/30 ML UDCUP PO PRN (05:35)
[2021-02-24] MEDS: POTASSIUM CHLORIDE 10% ELIXIR 20 MEQ/15 ML UDCUP PO PRN (05:36)
[2021-02-24] MEDS: INSULIN HUMULIN R 100 UNIT/ML 3ML SQ SCH ×4 (06:02→21:00)
[2021-02-24 07:48] VITALS: BP 137/94
[2021-02-24] MEDS: BUSPIRONE HCL 5 MG TABLET PO SCH ×2 (10:07→21:11)
[2021-02-24] MEDS: SPIRONOLACTONE 25 MG TAB PO SCH (10:08)
[2021-02-24] MEDS: LISINOPRIL 10 MG TABLET PO SCH (10:08)
[2021-02-24] MEDS: BUMETANIDE 1 MG TAB PO SCH (10:08)
[2021-02-24] MEDS: ENOXAPARIN SODIUM 40 MG/0.4 ML SYRINGE SQ SCH (10:11)
[2021-02-24] MEDS: CARVEDILOL 3.125 MG TABLET PO SCH ×2 (10:18→21:11)
[2021-02-24 11:31] VITALS: BP 108/88
[2021-02-24 12:51] LABS: CREATININE 1.3 mg/dL (0.5-1.5); MAGNESIUM 1.5 mg/dL (1.80-2.40); POTASSIUM 3.2 mmol/L (3.5-5.1)
[2021-02-24 15:43] VITALS: BP 109/63
[2021-02-24 19:10] VITALS: BP 120/75
[2021-02-24] MEDS ORDERED: MORPHINE 2 MG SYG ONE (20:45)
[2021-02-24] MEDS ORDERED: MORPHINE 2 MG SYG IVP PRN (20:45)
[2021-02-24 23:50] VITALS: BP 97/45
[2021-02-25] MEDS: MAGNESIUM 2GM PREMIX 50ML 50 ML IV PRN ×2 (03:05→10:05)
[2021-02-25 03:32] VITALS: BP 96/64
[2021-02-25 04:17] LABS: CREATININE 1.8 mg/dL (0.5-1.5); POTASSIUM 3.4 mmol/L (3.5-5.1)
[2021-02-25] MEDS: INSULIN HUMULIN R 100 UNIT/ML 3ML SQ SCH ×4 (06:23→20:41)
[2021-02-25 08:00] VITALS: BP 95/59
[2021-02-25] MEDS: BUMETANIDE 1 MG TAB PO SCH (08:31)
[2021-02-25] MEDS: CARVEDILOL 3.125 MG TABLET PO SCH ×2 (08:32→20:41)
[2021-02-25] MEDS: BUSPIRONE HCL 5 MG TABLET PO SCH ×2 (08:32→20:41)
[2021-02-25] MEDS: SPIRONOLACTONE 25 MG TAB PO SCH ×2 (08:32→09:00)
[2021-02-25] MEDS: ENOXAPARIN SODIUM 40 MG/0.4 ML SYRINGE SQ SCH (08:35)
[2021-02-25] MEDS: LISINOPRIL 10 MG TABLET PO SCH (09:00)
[2021-02-25] MEDS: KCL 20 MEQ ERTAB PO PRN (10:05)
[2021-02-25 11:40] LABS: CREATININE 1.6 mg/dL (0.5-1.5); POTASSIUM 3.1 mmol/L (3.5-5.1)
[2021-02-25 12:02] VITALS: BP 98/58
[2021-02-25] MEDS: POTASSIUM CHLORIDE 10% ELIXIR 20 MEQ/15 ML UDCUP PO PRN ×2 (12:55→16:06)
[2021-02-25] MEDS ORDERED: FUROSEMIDE 40MG VIAL IV SCH (14:00)
[2021-02-25 16:00] VITALS: BP 137/60
[2021-02-25] MEDS: ACETAMINOPHEN 325 MG TAB PO PRN (18:11)
[2021-02-25 19:35] VITALS: BP 100/63
[2021-02-26] VITALS (7 sets, daily range): BP systolic 84–141; BP diastolic 53–94
[2021-02-26] MEDS ORDERED: FUROSEMIDE 40MG VIAL IV SCH ×2 (02:00→12:00)
[2021-02-26] MEDS: INSULIN HUMULIN R 100 UNIT/ML 3ML SQ SCH ×4 (05:38→21:00)
[2021-02-26 06:36] LABS: BASOPHILS % (AUTO) 0.8 % (0.0-5.0); EOSINOPHILS % (AUTO) 1.7 % (0.0-8.0); HEMATOCRIT 41.7 % (42-54); LYMPHOCYTES % (AUTO) 20.2 % (21.0-51.0); MEAN CORPUSCULAR HEMOGLOBIN 30.9 pg (27.0-33.0); MEAN CORPUSCULAR HGB CONC 31.9 g/dL (32.0-36.0); MEAN CORPUSCULAR VOLUME 96.8 fL (79-99); MONOCYTES % (AUTO) 9.3 % (3.0-13.0); NEUTROPHILS % (AUTO) 67.6 % (40.0-77.0); PLATELET COUNT (AUTO) 284 K/uL (130-400); RED BLOOD CELL COUNT(AUTO) 4.31 MIL/uL (4.50-6.20); RED CELL DISTRIBUTION WIDTH 13.1 % (11.0-15.5); WHITE BLOOD COUNT (AUTO) 10.8 K/uL (4.8-10.8)
[2021-02-26 06:43] LABS: CREATININE 1.8 mg/dL (0.5-1.5); MAGNESIUM 2.3 mg/dL (1.80-2.40); POTASSIUM 3.7 mmol/L (3.5-5.1)
[2021-02-26] MEDS: CARVEDILOL 3.125 MG TABLET PO SCH ×2 (10:01→20:19)
[2021-02-26] MEDS: BUSPIRONE HCL 5 MG TABLET PO SCH ×2 (10:01→20:27)
[2021-02-26] MEDS: ENOXAPARIN SODIUM 40 MG/0.4 ML SYRINGE SQ SCH (10:16)
[2021-02-26] MEDS ORDERED: THIAMINE HCL 100 MG TABLET PO ONE (15:15)
[2021-02-26 22:56] LABS: APPEARANCE,URINE Clear (CLEAR); BILIRUBIN,URINE Negative (NEGATIVE); COLOR,URINE Yellow (YELLOW); GLUCOSE, URINE (UA) Negative (NEGATIVE); KETONES,URINE Negative (NEGATIVE); LEUKOCYTE ESTERASE ,URINE Small (NEGATIVE); NITRATE,URINE Negative (NEGATIVE); OCCULT BLOOD,URINE Large (NEGATIVE); PROTEIN,URINE POS 2+ mg/dL (NEGATIVE)
[2021-02-26 23:07] LABS: BACTERIA,URINE Few /HPF (None Seen); RBC,URINE >100 /HPF (0-1)
[2021-02-27] MEDS: FUROSEMIDE 20MG VIAL IV SCH ×5 (00:06→22:18)
[2021-02-27 03:12] VITALS: BP 116/75
[2021-02-27 03:59] LABS: MEAN CORPUSCULAR HEMOGLOBIN 30.3 pg (27.0-33.0); MEAN CORPUSCULAR HGB CONC 32.2 g/dL (32.0-36.0); MEAN CORPUSCULAR VOLUME 94.3 fL (79-99); PLATELET COUNT (AUTO) 305 K/uL (130-400); RED BLOOD CELL COUNT(AUTO) 4.35 MIL/uL (4.50-6.20); RED CELL DISTRIBUTION WIDTH 13.1 % (11.0-15.5); WHITE BLOOD COUNT (AUTO) 10.8 K/uL (4.8-10.8)
[2021-02-27 04:37] LABS: BASOPHILS % (AUTO) 0.6 % (0.0-5.0); EOSINOPHILS % (AUTO) 1.2 % (0.0-8.0); MONOCYTES % (AUTO) 8.8 % (3.0-13.0); NEUTROPHILS % (AUTO) 69.1 % (40.0-77.0)
[2021-02-27 04:39] LABS: CREATININE 1.4 mg/dL (0.5-1.5); MAGNESIUM 1.9 mg/dL (1.80-2.40); PHOSPHORUS 5.3 mg/dL (2.5-4.9); POTASSIUM 3.5 mmol/L (3.5-5.1); THYROID STIMULATING HORMONE 5.42 uIU/mL (0.36-3.74); URIC ACID 13.9 mg/dL (2.6-7.2)
[2021-02-27] MEDS: INSULIN HUMULIN R 100 UNIT/ML 3ML SQ SCH ×4 (07:30→20:13)
[2021-02-27 08:14] VITALS: BP 112/52
[2021-02-27] MEDS: SPIRONOLACTONE 25 MG TAB PO SCH (08:56)
[2021-02-27] MEDS: CARVEDILOL 3.125 MG TABLET PO SCH ×2 (08:57→21:28)
[2021-02-27] MEDS: BUSPIRONE HCL 5 MG TABLET PO SCH ×2 (08:57→21:27)
[2021-02-27] MEDS: ENOXAPARIN SODIUM 40 MG/0.4 ML SYRINGE SQ SCH (08:57)
[2021-02-27] MEDS: Vitamin B Complex/Vit C/Folic Acid PO SCH (08:57)
[2021-02-27 11:40] VITALS: BP 119/52
[2021-02-27] MEDS: ACETAMINOPHEN 325 MG TAB PO PRN (14:13)
[2021-02-27 16:37] VITALS: BP 143/76
[2021-02-27 19:37] VITALS: BP 134/56
[2021-02-27] MEDS: KCL 20 MEQ ERTAB PO PRN ×2 (21:27→21:41)
[2021-02-27] MEDS: POTASSIUM CHLORIDE 10% ELIXIR 20 MEQ/15 ML UDCUP PO PRN ×2 (21:42→23:52)
[2021-02-27 23:34] VITALS: BP 140/67
[2021-02-28 03:55] VITALS: BP 125/60
[2021-02-28] MEDS: FUROSEMIDE 20MG VIAL IV SCH ×3 (04:18→17:52)
[2021-02-28 04:30] LABS: BASOPHILS % (AUTO) 0.6 % (0.0-5.0); EOSINOPHILS % (AUTO) 1.7 % (0.0-8.0); HEMATOCRIT 41.4 % (42-54); LYMPHOCYTES % (AUTO) 22.5 % (21.0-51.0); MEAN CORPUSCULAR HGB CONC 30.9 g/dL (32.0-36.0); MEAN CORPUSCULAR VOLUME 97.2 fL (79-99); MONOCYTES % (AUTO) 10.6 % (3.0-13.0); NEUTROPHILS % (AUTO) 64.1 % (40.0-77.0); PLATELET COUNT (AUTO) 297 K/uL (130-400); RED BLOOD CELL COUNT(AUTO) 4.26 MIL/uL (4.50-6.20); RED CELL DISTRIBUTION WIDTH 13.1 % (11.0-15.5); WHITE BLOOD COUNT (AUTO) 9.9 K/uL (4.8-10.8)
[2021-02-28 04:55] LABS: CREATININE 1.2 mg/dL (0.5-1.5); POTASSIUM 3.5 mmol/L (3.5-5.1)
[2021-02-28 05:02] LABS: B-TYPE NATRIURETIC PEPTIDE 392 pg/mL (0-100)
[2021-02-28 05:26] LABS: PLATELET MORPHOLOGY PLT CLUMPS PRESENT
[2021-02-28] MEDS: INSULIN HUMULIN R 100 UNIT/ML 3ML SQ SCH ×4 (06:27→20:41)
[2021-02-28 08:31] VITALS: BP 131/71
[2021-02-28] MEDS: ALLOPURINOL 100 MG TABLET PO SCH (09:04)
[2021-02-28] MEDS: Vitamin B Complex/Vit C/Folic Acid PO SCH (09:04)
[2021-02-28] MEDS: CARVEDILOL 3.125 MG TABLET PO SCH ×2 (09:04→20:40)
[2021-02-28] MEDS: POTASSIUM CHLORIDE 10% ELIXIR 20 MEQ/15 ML UDCUP PO PRN ×2 (09:04→13:20)
[2021-02-28] MEDS: SPIRONOLACTONE 25 MG TAB PO SCH ×2 (09:04→20:40)
[2021-02-28] MEDS: ACETAMINOPHEN 325 MG TAB PO PRN (09:05)
[2021-02-28] MEDS: ENOXAPARIN SODIUM 40 MG/0.4 ML SYRINGE SQ SCH (09:06)
[2021-02-28] MEDS ORDERED: TRAMADOL HCL 50 MG TABLET PO PRN (09:15)
[2021-02-28] MEDS: KCL 20 MEQ ERTAB PO SCH (11:41)
[2021-02-28 12:13] VITALS: BP 133/76
[2021-02-28 16:54] VITALS: BP 105/59
[2021-02-28 20:00] VITALS: BP 110/70
[2021-02-28] MEDS: BUSPIRONE HCL 5 MG TABLET PO SCH ×2 (20:40→20:50)
[2021-03-01] VITALS: BP 115/70
[2021-03-01] MEDS: FUROSEMIDE 20MG VIAL IV SCH ×3 (01:14→21:57)
[2021-03-01 04:00] VITALS: BP 108/78
[2021-03-01 05:24] LABS: HEMATOCRIT 42.5 % (42-54); MEAN CORPUSCULAR HEMOGLOBIN 29.9 pg (27.0-33.0); MEAN CORPUSCULAR HGB CONC 31.3 g/dL (32.0-36.0); MEAN CORPUSCULAR VOLUME 95.5 fL (79-99); RED BLOOD CELL COUNT(AUTO) 4.45 MIL/uL (4.50-6.20); RED CELL DISTRIBUTION WIDTH 13.1 % (11.0-15.5)
[2021-03-01 05:43] LABS: CREATININE 1.2 mg/dL (0.5-1.5); MAGNESIUM 1.8 mg/dL (1.80-2.40); PHOSPHORUS 4.1 mg/dL (2.5-4.9); POTASSIUM 3.6 mmol/L (3.5-5.1)
[2021-03-01] MEDS: INSULIN HUMULIN R 100 UNIT/ML 3ML SQ SCH ×5 (05:46→20:15)
[2021-03-01] MEDS: POTASSIUM CHLORIDE 10% ELIXIR 20 MEQ/15 ML UDCUP PO PRN ×2 (05:50→10:17)
[2021-03-01 08:27] VITALS: BP 108/81
[2021-03-01] MEDS: BUSPIRONE HCL 5 MG TABLET PO SCH ×3 (09:00→20:15)
[2021-03-01] MEDS: KCL 20 MEQ ERTAB PO SCH (09:00)
[2021-03-01] MEDS: SPIRONOLACTONE 25 MG TAB PO SCH ×2 (09:01→20:08)
[2021-03-01] MEDS: Vitamin B Complex/Vit C/Folic Acid PO SCH (09:01)
[2021-03-01] MEDS: ALLOPURINOL 100 MG TABLET PO SCH (09:03)
[2021-03-01] MEDS: CARVEDILOL 3.125 MG TABLET PO SCH ×2 (09:03→20:15)
[2021-03-01] MEDS: LACTULOSE 20 GM/30 ML UDCUP PO PRN (10:18)
[2021-03-01] MEDS: ENOXAPARIN SODIUM 40 MG/0.4 ML SYRINGE SQ SCH (10:19)
[2021-03-01] MEDS: MAGNESIUM 2GM PREMIX 50ML 50 ML IV PRN (12:25)
[2021-03-01 12:38] VITALS: BP 135/88
[2021-03-01 16:59] VITALS: BP 113/55
[2021-03-01 20:33] VITALS: BP 107/50
[2021-03-02 00:13] VITALS: BP 107/64
[2021-03-02 03:57] VITALS: BP 126/67
[2021-03-02] MEDS: INSULIN HUMULIN R 100 UNIT/ML 3ML SQ SCH ×2 (06:17→11:30)
[2021-03-02 08:00] VITALS: BP 129/77
[2021-03-02 08:27] LABS: HEMATOCRIT 40.9 % (42-54); MEAN CORPUSCULAR HEMOGLOBIN 30.7 pg (27.0-33.0); MEAN CORPUSCULAR HGB CONC 31.3 g/dL (32.0-36.0); MEAN CORPUSCULAR VOLUME 98.1 fL (79-99); RED BLOOD CELL COUNT(AUTO) 4.17 MIL/uL (4.50-6.20); RED CELL DISTRIBUTION WIDTH 13.2 % (11.0-15.5); WHITE BLOOD COUNT (AUTO) 9.1 K/uL (4.8-10.8)
[2021-03-02] MEDS: Vitamin B Complex/Vit C/Folic Acid PO SCH (08:36)
[2021-03-02] MEDS: ALLOPURINOL 100 MG TABLET PO SCH (08:36)
[2021-03-02] MEDS: BUSPIRONE HCL 5 MG TABLET PO SCH (08:37)
[2021-03-02] MEDS: CARVEDILOL 3.125 MG TABLET PO SCH (08:37)
[2021-03-02] MEDS: KCL 20 MEQ ERTAB PO SCH (08:37)
[2021-03-02] MEDS: SPIRONOLACTONE 25 MG TAB PO SCH (08:37)
[2021-03-02] MEDS: ENOXAPARIN SODIUM 40 MG/0.4 ML SYRINGE SQ SCH (08:38)
[2021-03-02 08:43] LABS: CREATININE 1.1 mg/dL (0.5-1.5); MAGNESIUM 1.8 mg/dL (1.80-2.40); PHOSPHORUS 3.9 mg/dL (2.5-4.9); POTASSIUM 3.8 mmol/L (3.5-5.1)
[2021-03-02] MEDS ORDERED: FURO40TA7 PO (11:10)
[2021-03-02] MEDS ORDERED: SPIR25TA6 PO (11:10)
[2021-03-02] MEDS ORDERED: LISI2.5T2 PO (11:10)
[2021-03-02] MEDS ORDERED: POTA-79 PO (11:19)
[2021-03-02] MEDS: MAGNESIUM 2GM PREMIX 50ML 50 ML IV PRN (11:51)
[2021-03-02] MEDS: POTASSIUM CHLORIDE 10% ELIXIR 20 MEQ/15 ML UDCUP PO PRN ×2 (11:52→11:53)
[2021-03-02] MEDS: FUROSEMIDE 20MG VIAL IV SCH (11:52)
[2021-03-02 12:13] VITALS: BP 120/95
[2021-03-02] MEDS ORDERED: CARV3.1262 PO (14:36)
[2021-03-02 15:30] VITALS: BP 107/63
== END 2021-03-02 15:56 | disposition home or self-care (01) | DRG 291 ==
LOC: EDH 01:28 → EDHIP 01:29 → 4BH 02-23 07:17
PROVIDERS: ADMIT Internal Medicine; ATTEND Internal Medicine
PROC: 5A09357 Assistance with Respiratory Ventilation, Less than 24 Consecutive Hours, Continuous Positive Airway Pressure (ICD-10-PCS; principal; 2021-02-22)
PROC: 5A09357 Assistance with Respiratory Ventilation, Less than 24 Consecutive Hours, Continuous Positive Airway Pressure (ICD-10-PCS; 2021-02-23)
PROC: 5A09357 Assistance with Respiratory Ventilation, Less than 24 Consecutive Hours, Continuous Positive Airway Pressure (ICD-10-PCS; 2021-02-24)
PROC: 5A09357 Assistance with Respiratory Ventilation, Less than 24 Consecutive Hours, Continuous Positive Airway Pressure (ICD-10-PCS; 2021-02-25)
PROC: 5A09357 Assistance with Respiratory Ventilation, Less than 24 Consecutive Hours, Continuous Positive Airway Pressure (ICD-10-PCS; 2021-02-26)
PROC: 5A09357 Assistance with Respiratory Ventilation, Less than 24 Consecutive Hours, Continuous Positive Airway Pressure (ICD-10-PCS; 2021-02-27)
PROC: 5A09357 Assistance with Respiratory Ventilation, Less than 24 Consecutive Hours, Continuous Positive Airway Pressure (ICD-10-PCS; 2021-02-28)
PROC: 5A09357 Assistance with Respiratory Ventilation, Less than 24 Consecutive Hours, Continuous Positive Airway Pressure (ICD-10-PCS; 2021-03-01)
PROC: 5A09357 Assistance with Respiratory Ventilation, Less than 24 Consecutive Hours, Continuous Positive Airway Pressure (ICD-10-PCS; 2021-03-02)
DX: I13.0 Hypertensive heart and chronic kidney disease with heart failure and stage 1 through stage 4 chronic kidney disease, or unspecified chronic kidney disease (principal); I50.23 Acute on chronic systolic (congestive) heart failure; J96.01 Acute respiratory failure with hypoxia; N17.9 Acute kidney failure, unspecified; E66.2 Morbid (severe) obesity with alveolar hypoventilation; R18.8 Other ascites; Z68.44 Body mass index [BMI] 60.0-69.9, adult; E87.6 Hypokalemia; F12.10 Cannabis abuse, uncomplicated; N18.2 Chronic kidney disease, stage 2 (mild); E11.22 Type 2 diabetes mellitus with diabetic chronic kidney disease; E78.5 Hyperlipidemia, unspecified; F13.90 Sedative, hypnotic, or anxiolytic use, unspecified, uncomplicated; I27.81 Cor pulmonale (chronic); N50.89 Other specified disorders of the male genital organs; Z91.14 Patient's other noncompliance with medication regimen; Z79.899 Other long term (current) drug therapy; Z91.19 Patient's noncompliance with other medical treatment and regimen
CPT/HCPCS: 36415; 36600; 71045; 74176; 76770; 80048; 80053; 80305; 81001; 82550; 82803; 82948; 83036; 83605; 83735; 83880; 83935; 84100; 84300; 84443; 84484; 84550; 85025; 85027; 85610; 85730; 93005; 94660; 94664; 99291; G0378; J1650; J1815; J1940; J2405; J3475; J3480; J3490

== ENCOUNTER 2021-09-19 23:35 | Emergency (ER) | payer OTHER ==
[~2021-09-19] VITALS: Ht 167.6 cm; Wt 136.1 kg
[~2021-09-19 23:35] MED LIST: CARV3.1262 PO; FURO40TA7 PO; LISI2.5T13 PO; POTA-79 PO; SPIR25TA6 PO
[2021-09-20] MEDS ORDERED: ONDANSETRON 4MG INJ IVP ONE (00:30)
[2021-09-20] MEDS ORDERED: MORPHINE 4 MG SYG IVP ONE (00:30)
[2021-09-20] MEDS ORDERED: FUROSEMIDE 40MG VIAL IV ONE (00:30)
[2021-09-20 00:36] LABS: BASOPHILS % (AUTO) 0.8 % (0.0-5.0); EOSINOPHILS % (AUTO) 0.8 % (0.0-8.0); HEMATOCRIT 38.7 % (42-54); LYMPHOCYTES % (AUTO) 10.4 % (21.0-51.0); MEAN CORPUSCULAR HEMOGLOBIN 31.5 pg (27.0-33.0); MEAN CORPUSCULAR VOLUME 98.2 fL (79-99); MONOCYTES % (AUTO) 13.7 % (3.0-13.0); NEUTROPHILS % (AUTO) 74.1 % (40.0-77.0); PLATELET COUNT (AUTO) 226 K/uL (130-400); RED BLOOD CELL COUNT(AUTO) 3.94 MIL/uL (4.50-6.20); RED CELL DISTRIBUTION WIDTH 16.5 % (11.0-15.5); WHITE BLOOD COUNT (AUTO) 4.8 K/uL (4.8-10.8)
[2021-09-20 00:45] LABS: CREATININE 0.9 mg/dL (0.5-1.5); POTASSIUM 3.7 mmol/L (3.5-5.1)
[2021-09-20 00:46] LABS: INR 1.42 (0.85-1.15)
[2021-09-20 00:47] LABS: PARTIAL THROMBOPLASTIN TIME 28.8 SEC (26.3-35.5)
[2021-09-20 00:52] LABS: ALBUMIN 3.1 g/dL (3.5-5.0); BILIRUBIN,TOTAL 2.5 mg/dL (0.2-1.0); MAGNESIUM 1.6 mg/dL (1.80-2.40); TOTAL PROTEIN, SERUM 7.7 g/dL (6.0-8.3)
[2021-09-20 00:59] LABS: B-TYPE NATRIURETIC PEPTIDE 377 pg/mL (0-100)
[2021-09-20 02:04] LABS: APPEARANCE,URINE Clear (CLEAR); BILIRUBIN,URINE Negative (NEGATIVE); COLOR,URINE Yellow (YELLOW); GLUCOSE, URINE (UA) Negative (NEGATIVE); KETONES,URINE Negative (NEGATIVE); LEUKOCYTE ESTERASE ,URINE Trace (NEGATIVE); NITRATE,URINE Negative (NEGATIVE); OCCULT BLOOD,URINE Negative (NEGATIVE); PH,URINE 7.5 (5.0-8.0); PROTEIN,URINE Negative (NEGATIVE)
[2021-09-20 02:13] LABS: BACTERIA,URINE None Seen /HPF (None Seen); MUCUS,URINE Rare LPF (None Seen); RBC,URINE None Seen /HPF (0-1); SQUAMOUS EPITHELIAL CELL,UR Rare /HPF (0-2); WBC,URINE 0-1 /HPF (0-1)
[2021-09-20 03:24] VITALS: BP 126/78
== END 2021-09-20 03:49 | disposition home or self-care (01) ==
LOC: EDH 23:35
DX: U07.1 COVID-19 (principal); E66.01 Morbid (severe) obesity due to excess calories; Z68.42 Body mass index [BMI] 45.0-49.9, adult; I11.9 Hypertensive heart disease without heart failure; I25.10 Atherosclerotic heart disease of native coronary artery without angina pectoris; F41.9 Anxiety disorder, unspecified; G47.30 Sleep apnea, unspecified; Z79.899 Other long term (current) drug therapy; F17.200 Nicotine dependence, unspecified, uncomplicated
CPT/HCPCS: 36415; 71045; 80053; 81001; 82550; 83735; 83880; 84484; 85025; 85610; 85730; 87635; 93005; 96374; 96375; 99285; C9803; J1940; J2270; J2405